=== PATIENT | male | born 1965 | race Caucasian/White ===

== ENCOUNTER 2016-11-09 11:31 | Emergency (ER) | payer OTHER ==
[~2016-11-09] VITALS: Ht 182.9 cm; Wt 83.9 kg
--- NOTE | 2016-11-09 11:36 | NUR ---
PATIENT BIB [facility] FOR UNWITNESSED SEIZURE, HEADACHE, NO RESPIRATORY DISTRESS, NO CHEST PAIN, NO OTHER MEDICAL COMPLAINTS, WILL BE SEEN BY MD AT BEDSIDE
[2016-11-09] MEDS ORDERED: IBUPROFEN 600 MG TABLET PO ONE ×2 (11:52→12:00)
[2016-11-09 13:06] VITALS: BP 134/77
--- NOTE | 2016-11-09 13:06 | NUR ---
Patient discharged to home in stable condition. Written and verbal after care instructions given. Patient verbalizes understanding of instruction. DISCHARGED WITH PD, OKAY TO BOOK.
== END 2016-11-09 13:08 ==
LOC: ER 11:34
DX: R56.9 Unspecified convulsions (principal); K42.0 Umbilical hernia with obstruction, without gangrene
CPT/HCPCS: 70450; 72100; 99284; A4606 ×2; Z7610 ×2

== ENCOUNTER 2017-04-02 09:22 | Emergency (ER) | payer OTHER ==
[~2017-04-02] VITALS: Ht 182.9 cm; Wt 74.8 kg
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
--- NOTE | 2017-04-02 09:35 | NUR ---
PT REQUESTED FOOD- PROVIDED. AWARE.
--- NOTE | 2017-04-02 10:14 | NUR ---
Patient discharged to home in stable condition. Written and verbal after care instructions given. Patient verbalizes understanding of instruction.
[2017-04-02 10:24] VITALS: BP 131/80
== END 2017-04-02 10:24 ==
LOC: ER 09:24
DX: Z02.89 Encounter for other administrative examinations (principal); R41.82 Altered mental status, unspecified
CPT/HCPCS: 82962 ×2; 99283; A4606; Z7610

== ENCOUNTER 2017-05-22 09:51 | Emergency (ER) | payer OTHER ==
[~2017-05-22] VITALS: Ht 172.7 cm; Wt 72.6 kg
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
[2017-05-22 10:17] LABS: BASOPHILS % (AUTO) 0.6 % (0.0-2.0); EOSINOPHILS # (AUTO) 0.1 /CMM (0.0-0.7); EOSINOPHILS % (AUTO) 1.5 % (0.0-6.0); HEMATOCRIT 43 % (39-51); HEMOGLOBIN 14.3 g/dL (13.5-17.5); LYMPHOCYTES # (AUTO) 1.4 /CMM (0.8-4.8); LYMPHOCYTES % (AUTO) 19.2 % (20.0-44.0); MEAN CORPUSCULAR HEMOGLOBIN 31 PG (26.0-33.0); MEAN CORPUSCULAR HGB CONC 34 g/dl (31.0-36.0); MEAN CORPUSCULAR VOLUME 92 fL (80-96); MONOCYTES # (AUTO) 0.6 /CMM (0.1-1.30); MONOCYTES % (AUTO) 8.1 % (2.0-12.0); NEUTROPHILS # (AUTO) 5.4 /CMM (1.8-8.9); NEUTROPHILS % (AUTO) 70.6 % (43.0-81.0); PLATELET COUNT (AUTO) 314 /CMM (150-450); RDW COEFFICIENT OF VARIATION 13.2 (11.5-15.0); RED BLOOD CELL COUNT(AUTO) 4.61 MIL/uL (4.5-6.0); WHITE BLOOD COUNT (AUTO) 7.5 K/uL (4.3-11.0)
[2017-05-22 10:26] LABS: CALCIUM, SERUM 8.7 mg/dL (8.5-10.1); CREATININE 0.8 mg/dL (0.6-1.3)
[2017-05-22 10:32] LABS: ALBUMIN 3.7 g/dL (3.4-5.0); BILIRUBIN,DIRECT 0.1 mg/dL (0.0-0.2); BILIRUBIN,TOTAL 0.3 mg/dL (0.2-1.0); TOTAL PROTEIN, SERUM 7.5 g/dL (6.4-8.2)
--- NOTE | 2017-05-22 10:54 | NUR ---
IV removed. Catheter intact and site benign. Pressure and 4x4 applied to site. No bleeding noted.
--- NOTE | 2017-05-22 10:54 | NUR ---
Patient discharged to home in stable condition. Written and verbal after care instructions given. Patient verbalizes understanding of instruction. IN CUSTODY
[2017-05-22 10:55] VITALS: BP 150/86
== END 2017-05-22 11:00 ==
LOC: ER 09:57
DX: E10.65 Type 1 diabetes mellitus with hyperglycemia (principal); M54.9 Dorsalgia, unspecified; G89.29 Other chronic pain; Z79.4 Long term (current) use of insulin
CPT/HCPCS: 36415; 80048-TC; 80076-TC; 82962-TC; 83690-TC; 85025-TC; A4606; J7030; Z7610